=== PATIENT | female | born 1955 | race Caucasian/White ===

== ENCOUNTER 2021-11-28 06:56 | Day surgery (SDC) | payer MEDICARE, OTHER ==
[~2021-11-28 06:56] MED LIST: Sodium Chloride 0.9% 10 ML Syringe FLUSH PRN
[2021-11-28] MEDS ORDERED: fentaNYL 100 MCG/2 ML SDV IV ONE (06:57)
[2021-11-28] MEDS ORDERED: Midazolam 1 MG/ML 2 ML SDV IV ONE (06:57)
[2021-11-28] MEDS ORDERED: Glycopyrrolate 0.2 MG/ML 5 ML MDV IV ONE (06:57)
[2021-11-28] MEDS: Lactated Ringers 1,000 ML IV SCH (07:27)
[2021-11-28] MEDS: Lidocaine 1% 20 ML MDV INJECT ONE (08:53)
== END 2021-11-28 09:58 | disposition home or self-care (01) ==
LOC: FB.SDS 06:56
PROVIDERS: ATTEND Surgery
DX: G56.02 Carpal tunnel syndrome, left upper limb (principal); I12.9 Hypertensive chronic kidney disease with stage 1 through stage 4 chronic kidney disease, or unspecified chronic kidney disease; N18.30 Chronic kidney disease, stage 3 unspecified; G47.33 Obstructive sleep apnea (adult) (pediatric); F41.9 Anxiety disorder, unspecified; E66.9 Obesity, unspecified; M51.36 Other intervertebral disc degeneration, lumbar region; Z88.2 Allergy status to sulfonamides; Z88.1 Allergy status to other antibiotic agents; Z79.899 Other long term (current) drug therapy; Z68.35 Body mass index [BMI] 35.0-35.9, adult
CPT/HCPCS: 64721; J2250; J3010; J3490; J7120